=== PATIENT | male | born 1950 | race Caucasian/White ===

== ENCOUNTER 2020-04-17 08:46 | Emergency (ER) | payer OTHER, BC ==
[~2020-04-17] VITALS: Ht 170.2 cm; Wt 68.0 kg
[2020-04-17] MEDS ORDERED: DECADRON0.5 MG (09:08)
[2020-04-17] MEDS ORDERED: LIPITOR40 M1 (09:08)
[2020-04-17] MEDS ORDERED: CARVEDILOL25 M1 (09:09)
[2020-04-17] MEDS ORDERED: ZESTRIL40 M1 (09:09)
[2020-04-17] MEDS ORDERED: ROZEREM8 MG (09:10)
[2020-04-17] MEDS ORDERED: NORVASC2.5 MG (09:11)
[2020-04-17] MEDS ORDERED: GOCOVRI68.5 MG (09:11)
[2020-04-17] MEDS ORDERED: LODOSYN25 MG (09:11)
[2020-04-17] MEDS ORDERED: ROPINIROLE HCL1 MG (09:12)
== END 2020-04-17 15:47 | disposition home or self-care (01) ==
LOC: ER 08:46
DX: S00.83XA Contusion of other part of head, initial encounter (principal); W18.39XA Other fall on same level, initial encounter; Y93.89 Activity, other specified; Y92.098 Other place in other non-institutional residence as the place of occurrence of the external cause; Y99.8 Other external cause status; Z03.818 Encounter for observation for suspected exposure to other biological agents ruled out

== ENCOUNTER 2020-04-18 11:11 | Emergency (ER) | payer OTHER, BC ==
[~2020-04-18] VITALS: Ht 167.6 cm; Wt 72.6 kg
[~2020-04-18 11:11] MED LIST: CARVEDILOL25 M1; DECADRON0.5 MG; GOCOVRI68.5 MG; LIPITOR40 M1; LODOSYN25 MG; NORVASC2.5 MG; ROPINIROLE HCL1 MG; ROZEREM8 MG; ZESTRIL40 M1
== END 2020-04-19 03:14 | disposition designated cancer center or children's hospital (05) ==
LOC: ER 11:11
DX: S02.40DA Maxillary fracture, left side, initial encounter for closed fracture (principal); S02.40CA Maxillary fracture, right side, initial encounter for closed fracture; R04.0 Epistaxis; M99.51 Intervertebral disc stenosis of neural canal of cervical region; G30.8 Other Alzheimer's disease; F02.80 Dementia in other diseases classified elsewhere, unspecified severity, without behavioral disturbance, psychotic disturbance, mood disturbance, and anxiety; I10 Essential (primary) hypertension; W18.09XA Striking against other object with subsequent fall, initial encounter; Y93.89 Activity, other specified; Y92.018 Other place in single-family (private) house as the place of occurrence of the external cause; Y99.8 Other external cause status; Z03.818 Encounter for observation for suspected exposure to other biological agents ruled out